=== PATIENT | female | born 1960 | race Caucasian/White ===

== ENCOUNTER → 2020-08-01 10:38 | Outpatient (CLI) | payer OTHER, SELFPAY ==
--- NOTE | ~2020-08-01 | MM_ITS ---
EXAMINATION: MM screening [facility] BI w renetta HISTORY: Screening mammogram TECHNIQUE: Craniocaudal and mediolateral oblique 3-D tomosynthesis images were obtained and synthetic 2-D images were generated. CAD analysis was submitted and interpreted. COMPARISON: 07/02/2019, 06/29/2018, 06/27/2017, 08/05/2016 BREAST PARENCHYMAL COMPOSITION: There are scattered areas of fibroglandular density. FINDINGS: Scattered benign-appearing calcifications are present. There is no evidence of suspicious m ass, calcification, or architectural distortion to suggest malignancy in either breast. There has bee n no suspicious interval change. IMPRESSION: 1. No mammographic evidence of malignancy. 2. Recommend routine screening mammography in one year. BI-RADS Category 2: Benign finding(s). Reviewed, dictated and finalized at location A. SHING TUNNEL OPERATOR
== END ==
PROVIDERS: PCP Internal Medicine; Visit Provider Nurse Practitioner
DX: Z12.31 Encounter for screening mammogram for malignant neoplasm of breast (principal)
CPT/HCPCS: 77063; 77067

== ENCOUNTER 2021-03-15 01:08 | Day surgery (SDC) | payer OTHER, SELFPAY ==
[2021-03-01 10:53] VITALS: BMI 27.6
[2021-03-15 06:08] VITALS: BP 176/81; PULSE 58; RESP 18; TEMP 36.6; O2SAT 98; BMI 27.3
[2021-03-15] MEDS: LACTATED RINGERS 1,000 ML 30 ML IV CONT (06:38)
--- NOTE | 2021-03-15 06:59 | WPDANESEPPF ---
Anes - Initial Pre Proc Eval Procedure: Operation Date: 03/15/21 07:30 Proposed Procedures p Screening Colonoscopy - Deo Turpin MD Date/Time: 03/15/21 06:59 Surgeon: Deo Turpin MD Pre Op Diagnosis: family hx of colon ca, neoplasm screening Patient Data Age: 61 Gender: F Height: 1.63 m Weight: 72.2 kg Last Vital Signs Temp 36.6 C 03/15/21 06:08 Pulse 58 L 03/15/21 06:08 Resp 18 03/15/21 06:08 BP 176/81 H 03/15/21 06:08 Pulse Ox 98 03/15/21 06:08 Allergies Allergy/AdvReac Type Severity Reaction Status Date / Time Penicillins Allergy Unknown Other Verified 03/15/21 06:17 Home Medications Medication Instructions Recorded Confirmed Type ascorbic acid (vitamin C) 250 mg PO DAILY 03/01/21 03/15/21 History cholecalciferol (vitamin D3) 125 mcg PO 4XW 03/01/21 03/15/21 History metoprolol succinate 100 mg PO DAILY 03/01/21 03/15/21 History multivit with min-folic acid 1 tablet PO DAILY 03/01/21 03/15/21 History [Adult One Daily Multivitamin] triamterene-hydrochlorothiazid 1 tablet PO QAM 03/01/21 03/15/21 History Patient hx anesthesia problems: none Family hx anesthesia problems: none PMFSH Past Medical History Medical History Bunion HTN (hypertension) Overweight Smoker Surgical History Surgical History (Updated 03/15/21 @ 07:00 by Srinivasa Colby MD) H/O arthroscopic knee surgery Social History Social History Smoking packs per day: 1 Smoking cigarettes per day: 20.0 Years smoked: 40 Smoking pack-years: 40.00 Smoking status: Current every day smoker Tobacco type: cigarettes Alcohol intake: current Drinks per week: 10 Living arrangements: with family Spiritual care concerns: No Anes - Eval Final PreProcedure Day of Procedure 03/15/21 06:59 Patient weight: overweight Heart: regular rate and rhythm Lungs: clear to auscultation Airway: Mallampati scale class II Neurological: alert and oriented Last oral intake: >/= 8 hours ASA classification: II Emergent: no Anesthetic plan: proceed Anesthesia type and monitoring: general GIVS and standard monitoring Informed Consent: The patient's anesthetic plan and its attendant risks and benefits were discussed with the patient/family/POA. Questions were solicited and answers provided to the satisfaction of the patient/family/POA.
--- NOTE | 2021-03-15 07:12 | WPDGICN ---
Assessment and Plan Assessment and plan (1) Family history of malignant neoplasm of colon in first degree relative diagnosed when younger than 60 years of age: Code(s): Z80.0 - Family history of malignant neoplasm of digestive organs Status: Acute Assessment and Plan: Patient has a family history of colon cancer in her sister. For this reason surveillance colonoscopy is recommended now on a 5 year intervals in the future. High-fiber diet is advised for her frequent stools suggesting irritable bowel syndrome. If this fails to improve her bowel habits, then Viberzi has been recommended as well. GI Consult Note Consult date/time: 03/15/21 07:12 HPI: Shelia Kang is a 61 year old female Presents for screening colonoscopy. Patient's current weight appetite bowel movement reported to be normal. She denies abdominal pain. She has had no bleeding. Family history is significant that her sister had colon cancer. Patient does report that she has frequent stools. Sometimes up to 6 a day. She has had no bleeding. She has no abdominal pain. Her family physician as recently suggested a trial of Viberzi , but has not yet been started. Review of Systems Review of Systems: All systems reviewed & are unremarkable except as noted in HPI and below PMFSH Past Medical History Medical History Bunion HTN (hypertension) Overweight Smoker Surgical History Surgical History (Updated 03/15/21 @ 07:00 by Srinivasa Colby MD) H/O arthroscopic knee surgery Social History Social History Smoking packs per day: 1 Smoking cigarettes per day: 20.0 Years smoked: 40 Smoking pack-years: 40.00 Smoking status: Current every day smoker Tobacco type: cigarettes Alcohol intake: current Drinks per week: 10 Living arrangements: with family Spiritual care concerns: No Meds Home Medications and Allergies Home Medications Medication Instructions Recorded Confirmed Type ascorbic acid (vitamin C) 250 mg PO DAILY 03/01/21 03/15/21 History cholecalciferol (vitamin D3) 125 mcg PO 4XW 03/01/21 03/15/21 History metoprolol succinate 100 mg PO DAILY 03/01/21 03/15/21 History multivit with min-folic acid 1 tablet PO DAILY 03/01/21 03/15/21 History [Adult One Daily Multivitamin] triamterene-hydrochlorothiazid 1 tablet PO QAM 03/01/21 03/15/21 History Allergies Allergy/AdvReac Type Severity Reaction Status Date / Time Penicillins Allergy Unknown Other Verified 03/15/21 06:17 Vital Signs Vital Signs - 24 hr 03/15/21 06:08 Temperature 97.8 F Pulse Rate 58 L Respiratory Rate 18 Blood Pressure 176/81 H Pulse Oximetry 98 Exam Narrative: Physical exam reveals patient be alert. Vital signs stable. HEENT exam is unremarkable. Patient is anicteric. Lungs are clear to auscultation and percussion. Heart is without murmur or extra sounds. Abdominal exam bowel sounds are present soft nontender with no organomegaly. Digital external rectal exam is normal.
[2021-03-15] MEDS: SIMETHICONE ORAL SUSPENSION 20 MG/0.3 ML 30 ML BOTTLE 0.6 ML IRRIGATION (07:40)
[2021-03-15 07:46] VITALS: BP 124/84; PULSE 55; RESP 18; O2SAT 97
[2021-03-15 07:56] VITALS: BP 126/68; PULSE 55; RESP 18; O2SAT 100
[2021-03-15 08:06] VITALS: BP 173/90; PULSE 46; RESP 18; O2SAT 100
== END 2021-03-15 08:15 | disposition home or self-care (01) ==
PROVIDERS: PCP Internal Medicine; Visit Provider Internal Medicine Gastroenterology
PROC: 0DJD8ZZ Inspection of Lower Intestinal Tract, Via Natural or Artificial Opening Endoscopic (ICD-10-PCS; CPT 45378; principal; 2021-03-15 07:30)
DX: Z12.11 Encounter for screening for malignant neoplasm of colon (principal); D12.5 Benign neoplasm of sigmoid colon; K64.8 Other hemorrhoids; Z80.0 Family history of malignant neoplasm of digestive organs; I10 Essential (primary) hypertension; F17.210 Nicotine dependence, cigarettes, uncomplicated
CPT/HCPCS: 45385; 88305; J7120

== ENCOUNTER → 2021-08-03 10:46 | Outpatient (CLI) | payer OTHER, SELFPAY ==
--- NOTE | ~2021-08-03 | MM_ITS ---
EXAMINATION: MM screening [facility] BI w renetta HISTORY: Screening TECHNIQUE: Craniocaudal and mediolateral oblique 3-D tomosynthesis images were obtained and synthetic 2-D images were generated. CAD analysis was submitted and interpreted. COMPARISON: Comparison to multiple prior studies sequentially, with oldest reviewed study dated 06/20. BREAST PARENCHYMAL COMPOSITION: There are scattered areas of fibroglandular density. FINDINGS: There is no evidence of suspicious mass, calcification, or architectural distortion to sugg est malignancy in either breast. There has been no suspicious interval change. IMPRESSION: 1. No mammographic evidence of malignancy. 2. Recommend routine screening mammography in one year. BI-RADS Category 1: Negative Reviewed, dictated and finalized at location A. LINE CATALYST OPERATOR
== END ==
PROVIDERS: PCP Internal Medicine; Visit Provider Nurse Practitioner
DX: Z12.31 Encounter for screening mammogram for malignant neoplasm of breast (principal)
CPT/HCPCS: 77063; 77067

== ENCOUNTER → 2021-09-18 08:08 | Outpatient (CLI) | payer BC, SELFPAY ==
--- NOTE | ~2021-09-18 | CT_ITS ---
EXAMINATION: CT lung screening DATE: 09/18/2021 08:24 INDICATION: Z87.891 - Personal history of nicotine dependence TECHNIQUE: Computed tomography (CT) of the chest was performed without intravenous contrast. Addition al 3D reconstructions utilizing coronal maximum intensity projection (MIP) were performed. Automated exposure control and iterative reconstruction technique were employed. The dose-length product was 69 .98 mGy-cm. COMPARISON: None FINDINGS: Mild right apical pleural-parenchymal scarring. Calcified right upper lobe nodule which along with ca lcified right hilar and mediastinal lymph nodes and several scattered small hepatic and splenic calci fic lesions, all consistent with old granulomatous disease. There are few bilateral scattered <3 mm n odules. Minimal linear atelectasis/scarring at the inferomedial aspect of the lingula and right middl e lobe. No pleural effusion. Heart size is normal. Small amount of atherosclerotic coronary artery ca lcific location. No pericardial effusion. Thoracic aorta is normal in caliber with small amount scatt ered atherosclerotic calcific location. No pathologically enlarged thoracic lymphadenopathy. Mild cor tical atrophy at the visualized upper pole of the left kidney. Approximately 35 degrees thoracic dext roscoliosis with mild spondylosis. IMPRESSION: 1. Lung-RADS category 2: Benign appearance or behavior. Continue annual screening with noncontrast lo w-dose chest CT in 12 months. Reviewed, dictated and finalized at location A. INE ADJUSTER LEADER IMPRESSION: 1. Lung-RADS category 2: Benign appearance or behavior. Continue annual screeni ng with noncontrast low-dose chest CT in 12 months.
== END ==
PROVIDERS: PCP Family Medicine; Visit Provider Physician Assistant
DX: Z12.2 Encounter for screening for malignant neoplasm of respiratory organs (principal); Z87.891 Personal history of nicotine dependence
CPT/HCPCS: 71271

== ENCOUNTER → 2022-09-04 13:23 | Outpatient (CLI) | payer BC, SELFPAY ==
--- NOTE | ~2022-09-04 | MM_ITS ---
EXAMINATION: MM screening [facility] BI w renetta HISTORY: Screening mammogram TECHNIQUE: Craniocaudal and mediolateral oblique 3-D tomosynthesis images were obtained and synthetic 2-D images were generated. CAD analysis was submitted and interpreted. COMPARISON: 08/03/2021, 08/01/2020, 07/02/2019 BREAST PARENCHYMAL COMPOSITION: There are scattered areas of fibroglandular density. FINDINGS: No suspicious mass, calcification, or architectural distortion are identified in either codie ast to suggest malignancy. There has been no suspicious interval change. IMPRESSION: 1. No mammographic evidence of malignancy. 2. Recommend routine screening mammography in one year. BI-RADS Category 1: Negative Reviewed, dictated and finalized at location A. CASKET ASSEMBLER
== END ==
PROVIDERS: PCP Family Medicine; Visit Provider Nurse Practitioner
DX: Z12.31 Encounter for screening mammogram for malignant neoplasm of breast (principal)
CPT/HCPCS: 77063; 77067

== ENCOUNTER → 2023-10-07 15:44 | Outpatient (CLI) | payer BC, SELFPAY ==
--- NOTE | ~2023-10-07 | MM_ITS ---
EXAMINATION: MM screening [facility] BI w renetta HISTORY: Screening TECHNIQUE: Craniocaudal and mediolateral oblique 3-D tomosynthesis images were obtained and synthetic 2-D images were generated. CAD analysis was submitted and interpreted. COMPARISON: Comparison to multiple prior studies sequentially, with oldest reviewed study dated 06/18. BREAST PARENCHYMAL COMPOSITION: Not dense: There are scattered areas of fibroglandular density. FINDINGS: There is no evidence of suspicious mass, calcification, or architectural distortion to sugg est malignancy in either breast. There has been no suspicious interval change. IMPRESSION: 1. No mammographic evidence of malignancy. 2. Recommend routine screening mammography in one year. BI-RADS Category 1: Negative Reviewed, dictated and finalized at location A. ROUTE SUPERVISOR
== END ==
PROVIDERS: PCP Nurse Practitioner; Visit Provider Nurse Practitioner
DX: Z12.31 Encounter for screening mammogram for malignant neoplasm of breast (principal)
CPT/HCPCS: 77063; 77067

== ENCOUNTER 2023-11-25 10:54 | Outpatient (CLI) | payer BC, SELFPAY ==
--- NOTE | ~2023-11-25 | DEXA_ITS ---
Bone Density Report Name: RICKIE VELASQUEZ Age: 63 Sex: Female Ethnicity: White Date of : 1960 Indication: postmenopausal; screening for osteoporosis; Referring Provider: Antoine, Aleshia Study: Bone densitometry was performed. Exam Date: November 25, 2023 Accession number: [id number] Bone Density: Region BMD T-score Z-score Classification AP Spine (L1-L4) 0.946 -0.9 0.7 Normal Femoral Neck (Left) 0.761 -0.8 0.6 Normal Total Hip (Left) 0.872 -0.6 0.5 Normal Femoral Neck (Right) 0.793 -0.5 0.9 Normal Total Hip (Right) 0.869 -0.6 0.5 Normal Total Hip Mean 0.871 -0.6 0.5 Normal World Health Organization criteria for BMD impression classify patients as: Normal (T-score at or above -1.0), Osteopenia (T-score between -1.0 and -2.5), or Osteoporosis (T-score at or below -2.5). 10-year Fracture Risk: FRAX not reported because: All T-scores for Spine Total, Hip Total, Femoral Neck at or above -1.0 Previous Exams: Region Exam Age BMD T-score BMD Change BMD Change Date g/cm2 vs Baseline vs Previous AP Spine(L1-L4) 11/25/2023 63 0.946 -0.9 -0.005 -0.004 07/02/2019 59 0.950 -0.9 -0.001 0.018 08/05/2016 56 0.931 -1.1 -0.020 -0.028* 06/12/2013 53 0.959 -0.8 0.008 0.008 06/12/2013 53 0.951 -0.9 Total Hip(Left) 11/25/2023 63 0.872 -0.6 0.051* 0.016 07/02/2019 59 0.856 -0.7 0.035* -0.004 08/05/2016 56 0.861 -0.7 0.039* 0.039* 06/12/2013 53 0.821 -1.0 Total Hip(Right) 11/25/2023 63 0.869 -0.6 0.023 0.035* 07/02/2019 59 0.834 -0.9 -0.012 -0.030* 08/05/2016 56 0.864 -0.6 0.018 0.018 06/12/2013 53 0.846 -0.8 *Denotes significance at 95% confidence level, LSC for AP Spine = 0.022 g/cm2, LSC for Total Hip = 0.027 g/cm2 Clinical Information Provided by Patient: Has used the following medications: Vitamin D, MTV Patient maximum height was 64.0 Menopause Age: 42 No regular weight bearing exercise Drinks caffeinated beverages Onset of menses at age 13 Number of children 0 Impression: The patient has normal bone mass. No significant bone loss was observed. Discussion: BONE DENSITY IS ABOVE THE MINIMUM DESIRABLE LEVEL AT ALL SKELETAL SITES TESTED. This patient?s bone mineral density is above the minimum desira
== END 2023-11-25 10:55 ==
LOC: MICIMG 10:55
PROVIDERS: PCP Family Medicine; Visit Provider Nurse Practitioner
DX: Z13.820 Encounter for screening for osteoporosis (principal); Z78.0 Asymptomatic menopausal state
CPT/HCPCS: 77080

== ENCOUNTER 2023-12-09 13:37 | Outpatient (CLI) | payer BC, SELFPAY ==
--- NOTE | ~2023-12-09 | CT_ITS ---
CT Scan of the Chest without Contrast: Clinical Indication: Lung cancer showing, nicotine dependence Technique: Contiguous sections were acquired throughout the chest without intravenous contrast. Dose reduction technique was used on this scan by utilizing automated exposure control and iterative recon struction technique. The dose-length product (DLP) was 90.58 mGy-cm. COMPARISON: 09/18/2021 Findings: There is no evidence of any significant mediastinal, hilar or axillary lymphadenopathy. Calcified med iastinal and right hilar lymph nodes are present. Coronary artery calcium cages are present. The medi astinal soft tissues otherwise appear normal. There is no evidence of pleural or pericardial effusion. The lungs are clear, aside from calcified right upper lobe granuloma. Images through the upper abdomen reveal no abnormalities. Impression: Lung RADS 1: Negative. 12 month follow-up screening CT advised. Reviewed, dictated and finalized at [facility]. Impression: Lung RADS 1: Negative. 12 month follow-up screening CT advised.
== END 2023-12-09 13:38 ==
LOC: MICIMG 13:38
PROVIDERS: PCP Family Medicine; Visit Provider Family Medicine
DX: Z12.2 Encounter for screening for malignant neoplasm of respiratory organs (principal); Z87.891 Personal history of nicotine dependence
CPT/HCPCS: 71271

== ENCOUNTER 2024-10-11 10:04 | Outpatient (CLI) | payer BC, SELFPAY ==
--- NOTE | ~2024-10-11 | MM_ITS ---
EXAMINATION: MM screening [facility] BI w renetta HISTORY: Screening mammogram TECHNIQUE: Craniocaudal and mediolateral oblique 3-D tomosynthesis images were obtained and synthetic 2-D images were generated. CAD analysis was submitted and interpreted. COMPARISON: 10/07/2023, 09/04/2022, 08/03/2021 BREAST PARENCHYMAL COMPOSITION:Not Dense. There are scattered areas of fibroglandular density. FINDINGS: No suspicious mass, calcification, or architectural distortion are identified in either codie ast to suggest malignancy. There has been no suspicious interval change. IMPRESSION: No mammographic evidence of malignancy. Recommend routine screening mammography in one year. BI-RADS Category 1: Negative Reviewed, dictated and finalized at location . ING CONSULTANT
== END 2024-10-11 10:05 | disposition home or self-care (01) ==
LOC: MICIMG 10:04
PROVIDERS: PCP Family Medicine; Visit Provider Nurse Practitioner
DX: Z12.31 Encounter for screening mammogram for malignant neoplasm of breast (principal)
CPT/HCPCS: 77063; 77067

== ENCOUNTER 2025-05-13 12:37 | Emergency (ER) | payer BC, SELFPAY ==
--- OUTSIDE RECORDS SUMMARY | 2025-05-13 12:40 | XMS_ITS | Clinical Summary ---
Author Organization [facility] [address] Address [address] [place] [address] Care Team Providers Care Founder President And Ceo Name Role Phone Isidro Ag MD Primary Care Provider + Allergies Active Allergy Reactions Criticality Noted Date Comments Venom-Honey Bee Swelling Medium 03/04/2019 Penicillin G Rash Medium 11/12/2011 Rash Penicillins Rash Medium 03/04/2019 Medications ascorbic acid (vitamin C) 1,000 mg tablet Take 1,000 mg by mouth daily Active cholecalciferol (VITAMIN D-3) 1,000 unit tablet Take 1,000 Units by mouth daily Active multivitamin-iro n-folic acid 18-400 mg-mcg tabletIndication s:Vitamin Deficiency Prevention Take 1 tablet by mouth daily Active eluxadoline (Viberzi) 100 mg tabletIndication s:Diarrhea Predominant Irritable Bowel Syndrome Take 1 tablet (100 mg total) by mouth 2 (two) times a day 60 tablet 5 03/01/2021 Active metoprolol XL (TOPROL-XL) 100 mg 24 hr tablet Take 1 tablet by mouth once daily 90 tablet 01/29/2022 Active triamterene-hydr oCHLOROthiazide 37.5-25 mg per tablet TAKE 1 TABLET BY MOUTH DAILY 30 tablet 03/18/2022 Active Active Problems Problem Noted Date Diagnosed Date Irritable bowel syndrome with diarrhea Assessment & Plan (03/01/2021 8:28 AM CDT): Will try Viberizi 100 mg twice a day Numbness and tingling in left arm 03/01/2021 Assessment & Plan (03/01/2021 8:38 AM CDT): Discussed using NCT She states it is not bad enough to do a nerve conduction study. Ringworm 03/01/2021 Assessment & Plan (03/01/2021 8:40 AM CDT): She will try tinactin twice a day. Pure hypercholesterolemia 03/02/2020 Assessment & Plan (02/27/2021 10:07 AM CDT): Was elevated at last check. Hypertension, essential 03/04/2019 Assessment & Plan (03/01/2021 8:20 AM CDT): Elevated today, but she did not take her meds this am. Continue metoprolol and triamterene hydrochlorothiazide Assessment & Plan (03/02/2020 8:12 AM CDT): Slightly elevated today, but she did not take her medication this am. Continue metoprolol and triamterene hydrochlorothiazide Assessment & Plan (03/04/2019 2:13 PM CDT): Stable on metoprolol and triamterene hydrochlorothiazide Cigarette nicotine dependence without complicati on 03/04/2019 Assessment & Plan (02/27/2021 10:06 AM CDT): Counseled on smoking cessation for over 3 minutes Assessment & Plan (03/01/2020 7:08 AM CDT): Counseled on smoking cessation for over 3 minutes Assessment & Plan (03/04/2019 2:11 PM CDT): Patient's interest in quitting smoking. Information given. Family history of colon cancer 03/04/2019 Overview (03/04/2019): Due for colonoscopy in 2020 Assessment & Plan (03/01/2021 8:23 AM CDT): Has colonoscopy scheduled with Dr. Papi chi. Assessment & Plan (03/01/2020 7:08 AM CDT): Due for colonoscopy in 2019 Assessment & Plan (03/04/2019 2:31 PM CDT): Due for colonoscopy in 2020 BMI 28.0-28.9,adult 03/04/2019 Assessment & Plan (03/01/2020 7:09 AM CDT): BMI Follow-up includes: exercise counseling. Assessment & Plan (03/04/2019 2:34 PM CDT): BMI Follow-up includes: exercise counseling. Vitamin D deficiency 03/04/2019 Assessment & Plan (02/27/2021 10:07 AM CDT): Stable on vitamin D Assessment & Plan (03/01/2020 7:08 AM CDT): Stable on vitamin-D Immunizations Immunization Administration Dates Next Due Influenza, Quadrivalent, Spl it, Preservative Free, Intramuscular 06/02/2020,05/18/2019,05/18/2018 Pfizer SARS-CoV-2 Monovalent Vaccination (12+ Yrs) PURPLE 12/12/2020,11/21/2020 Surgical History Surgery Date Site/Laterality Comments BUNIONECTOMY 08/18/1995 - 08/17/1996 Bilateral KNEE ARTHROSCOPY Left 2012 COLONOSCOPY 08/18/2015 - 08/17/2016 Dr. Bolden - fabiola per patient Medical History Medical History Date Comments Hypertension Family History Medical History Relation Name Comments Lung cancer Father No Known Problems Mother Relation Name Status Comments Father Mother Social History Tobacco Use Types Packs/Day Years Used Date Smoking Tobacco: Every Day Cigarettes 0.5 30 Smokeless Tobacco: Never Tobacco Cessation:Ready to Q uit: Yes; Counseling Given: Yes Alcohol Use Standard Drinks/Week Comments Yes 10 (1 standard drink = 0.6 oz pu re alcohol) PHQ-2 Answer Date Recorded PHQ-2 Total Score (If total score is 3 or more points, staff should administer the PHQ-9) 0 03/01/2021 Personal Safety Answer Date Recorded Getting School Help Needed Not on file 10/12 Comments Unknown Sex and Gender Information Value Date Recorded Sex Assigned at Not on file 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 Gender Identity Not on file Sexual Orientation Not on file Obstetrics History Last Filed Vital Signs Vital Sign Reading Time Taken Comments Blood Pressure 160/90 03/01/2021 8:08 AM CDT Pulse 61 03/01/2021 8:08 AM CDT Temperature 36.7 C (98 F) 03/01/2021 8:08 AM CDT Respiratory Rate 16 03/01/2021 8:08 AM CDT Oxygen Saturation 98% 03/01/2021 8:08 AM CDT Inhaled Oxygen Concentration - - Weight 73.5 kg (162 lb 1.6 oz) 03/01/2021 8:08 A M CDT Height 161.9 cm (5' 3.75) 03/01/2021 8:08 AM CD T Body Mass Index 28.04 03/01/2021 8:08 AM CDT Plan of Treatment Health Maintenance Due Date Last Done Comments Cervical Cancer Screening 1960 Hepatitis C Screening 1960 DTaP/Tdap/Td Vaccine (1 - Tdap) 02/05/1972 Hepatitis B Screening 1979 Regular Well Visit/Exam 18-64 1979 Pneumococcal vaccine <65 (1 of 2 - PCV) 02/05/1980 Depression Screening 03/01/2022 03/01/2021, 03/02/20 Breast Cancer Screening-Mammogram 08/03/2022 021, 08/01/2020 Covid-19 Vaccine (3 - 2024-2 6 season) 2025 12/12/2020, 11/21/2020 Influenza Vaccine (#1) 2025 0, 05/18/2019, 05/18/2018 Colon Cancer Screening-Colonoscopy 03/15/20262020, 05/06/2016 Colon Cancer Screening-CT Colonography Discontinued 03/15/2021, 05/06/2016 Colon Cancer Screening-DNA Stool Discontinued 03/15/20 21, 05/06/2016 Colon Cancer Screening-FIT Discontinued 03/15/2021, Colon Cancer Screening-Sigmoidoscopy Discontinued 02/16, 05/06/2016 Zoster Vaccine Completed 12/20/2021, 10/10/2021 Procedures Procedure Name Priority Date/Time Associated Diagnosis Comments MAMMOGRAPHY Schedule Routine, Re ad Routine (OP Routine) 08/03/2021 COLONOSCOPY Routine 03/15/2021 from Last 3 Months or Most Recently Relevant to Health Maintenance Results * MAMMOGRAPHY (08/03/2021) Anatomical Region Laterality Modality Breast Mammography Historical Provider IMG MAMMO PROCEDURES Emperatriz l Result * Colonoscopy (03/15/2021) Anatomical Region Laterality Modality Other us Historical Provider ENDOSCOPY PROCEDURES Emperatriz l Result from Last 3 Months or Most Recently Relevant to Health Maintenance Insurance [facility] Care Teams Founder President And Ceo Relationship Specialty Start Date End Date Isidro Ag MD [address] [place] [id number] PCP - General Internal Medicine 03/04/19
--- OUTSIDE RECORDS SUMMARY | 2025-05-13 12:40 | XMS_ITS | Clinical Summary ---
Author Organization [facility] Address [address] [place] [address] Care Team Providers Care Cloud Developer Name Role Phone Unavailable Primary Care Provider Unavailabl e Source Comments [facility],non-owned Affiliates and Associated Physician Practices is amultiple site organization consisting of ambulatory clinics and hospital sitesin [place], [place], [place] and [place]. This disclosure is being madepursuant to the Care Everywhere program and may not contain all information available regarding this patient. Last updated 18.[facility] NeedFeed Allergies No known active allergies Immunizations Immunization Administration Dates Next Due INFLUENZA VACCINE, QUADR. 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 Gender Identity Not on file Sexual Orientation Not on file Plan of Treatment Health Maintenance Due Date Last Done Comments COLOGUARD (AGES 45-75) - COL ON CA SCREENING 1960 COLON MONITORING 1961 COLONOSCOPY - COLON CA SCREENING 1961 CT COLONOGRAPHY - COLON CA SCREENING 1960 Colorectal Cancer Screening 1960 FIT - COLON CA SCREENING 1961 FLEX SIG - COLON CA SCREENING 1960 LIPID TESTING 1960 MAMMOGRAM 1960 HIV SCREENING 02/05/1976 HEPATITIS C SCREENING 01/31/1979 DTAP/TDAP/TD VACCINES (1 - Tdap) 02/05/1980 PNEUMOCOCCAL VACCINE 50+ (1 of 1 - PCV) 2011 ZOSTER VACCINE (1 of 2) 2011 DEPRESSION SCREENING 08/18/2024 COVID-19 VACCINE (1 - 2023-2 5 season) 2025 INFLUENZA VACCINE (#1) 2025 05/18/2019 Respiratory Syncytial Virus (RSV) Vaccine Pt: or over 60 yrs (1 - 1-dose 75+ series) 02/05/2036 HEPATITIS B VACCINE Aged Out No longe r eligible based on patient's age to complete this topic HIB VACCINE Aged Out No longer eligi ble based on patient's age to complete this topic HPV VACCINE Aged Out No longer eligi ble based on patient's age to complete this topic MENINGOCOCCAL (Group B) VACC INE SHARED DECISION-MAKING Aged Out No longer eligibl e based on patient's age to complete this topic MENINGOCOCCAL GROUPS A/C/Y/W VACCINE Aged Out No longer eligible b ased on patient's age to complete this topic Insurance AETNA AETNA
[2025-05-13 12:45] VITALS: BP 128/71; PULSE 65; RESP 16; TEMP 36.9; O2SAT 100
--- NOTE | 2025-05-13 12:59 | ED_ITS ---
HPI - Dizziness General Chief Complaint: Dizziness Stated Complaint: Dizziness, L side tingling Time Seen by Provider: 05/13/25 12:43 Source: patient and RN notes reviewed Mode of arrival: ambulatory Limitations: no limitations History of Present Illness HPI Narrative: Patient is a 65-year-old female with history of HLD and hypertension, presenting today with sudden onset dizziness and left-sided numbness to the arm, leg, trunk, and face that started at 1220 while cleaning her house. States symptoms started to resolve upon arrival to [facility] appoximately 20 mins later. States the numbness is now tingling. Dizziness has improved, but is worsening again upon exam. Denies headache, vision changes, shortness of breath, chest pain, or any additional symptoms. Takes amlodipine, metoprolol, triamterene-hydrochlorothiazide for her hypertension. Former smoker. Related Data Home Medications ?Medication ?Instructions ?Recorded ?Confirmed ?Last Taken ?Type ascorbic acid (vitamin C) 250 mg 250 mg PO DAILY 03/0111/29/24 03/14/21 History tablet cholecalciferol (vitamin D3) 125 125 mcg PO 4XW 11/29/24 03/14/21 History mcg (5,000 unit) tablet multivitamin with minerals-folic 1 tablet PO DAILY 11/29/24 03/14/21 History acid 0.4 mg tablet (Adult One Daily Multivitamin) Allergies Allergy/AdvReac Type Severity Reaction Status Date / Time Penicillins Allergy Unknown Other Verified 05/13/25 12:49 [facility] Past Medical History Medical History HLD (hyperlipidemia) Asymptomatic microscopic hematuria chronic HTN (hypertension) Smoker Overweight Surgical History Surgical History H/O arthroscopic knee surgery L menisectomy Bunion Family History Family History Father Lung cancer Mother Hypertension Sibling Cerebrovascular accident Carcinoma of colon Social History Social History Smoking packs per day: 1 Smoking cigarettes per day: 20.0 Years smoked: 40 Smoking pack-years: 40.00 Smoking status: Former smoker Tobacco type: cigarettes Second hand tobacco smoke exposure: No Smoking end date: 06/17/23 Alcohol intake: current Drinks per week: 6 Substance use: never Substance use type: does not use Living arrangements: with family Occupation/Education: unemployed Gender identity (if verbalized by the patient): Female Sexual Orientation (if Verbalized by the Patient): Straight or Heterosexual Spiritual care concerns: No Comments At time of signature, I have reviewed and agree with nursing past medical, surgical, social and family history unless otherwise noted. Please see nursing chart for further information. There is no relevant family history pertinent to the presenting complaint Exam Narrative: GENERAL: Well-appearing, well-nourished, and in no acute distress. HEAD: Normocephalic, atraumatic. EYES: EOMI. PERRL. No redness or drainage. Conjunctivae normal. ENT: Mucous membranes pink and moist. Nares clear. No rhinorrhea. NECK: Normal AROM. Supple. No lymphadenopathy. CHEST: No respiratory distress. Clear to auscultation. HEART: Regular rate and rhythm. No murmur appreciated. EXTREMITIES: Normal range of motion. No edema. SKIN: Warm, dry, no rash. Capillary refill normal. Normal skin turgor. NEURO: No focal deficits. Alert and oriented x3. Gait steady. Hand commercial lines insurance agent equal and strong. 5/5 strength in BLE. Finger-nose normal. PSYCH: Normal affect. No signs of depression or anxiety. Course Course Level of Care: Express Care Visit Vital Signs Vital signs: Vital Signs Temperature 98.5 F 05/13/25 12:45 Pulse Rate 65 05/13/25 12:45 Respiratory Rate 16 05/13/25 12:45 Blood Pressure 128/71 05/13/25 12:45 Pulse Oximetry 100 05/13/25 12:45 Oxygen Delivery Room Air 05/13/25 12:45 Temperature 98.5 F 05/13/25 12:45 Pulse Rate 65 05/13/25 12:45 Respiratory Rate 16 05/13/25 12:45 Blood Pressure 128/71 05/13/25 12:45 Pulse Oximetry 100 05/13/25 12:45 Oxygen Delivery Room Air 05/13/25 12:45 Reviewed Transfer Transfered to: [place] Transportation: Other (private vehicle. Patient refuses EMS transport.) Transfer rationale: Sudden onset dizziness and numbness Accepting physician: Phoenix RANDOLPH - Dizziness MDM Narrative Medical decision making narrative: Patient is a 65-year-old female with history of HLD and hypertension, presents with sudden onset dizziness and left-sided numbness to the arm, leg, trunk, and face that started at 1220 while cleaning her house. States symptoms started to resolve upon arrival to [facility] appoximately 20 mins later. States the numbness is now tingling. Dizziness has improved, but is worsening again upon exam. Patient's exam was without any abnormal findings. VSS. Recommend patient transfer to the ER for further evaluation of her symptoms. Patient agrees with plan. She refuses EMS transport, but will go via private vehicle. Differential Diagnosis Differential diagnosis: Likely benign paroxysmal positional vertigo, orthostatic hypotension, cerebrovascular accident and transient cerebral ischemia Critical Care Time Critical Care Time Critical Care Time: No Discharge Plan Discharge Clinical Impression: Dizziness, Numbness and tingling Patient Disposition: Acute Care Hospital Condition: Serious Patient Language: Syriac Prescriptions: No Action varenicline tartrate [Chantix Starting Month Box] 0.5 mg (11)- 1 mg (42) tablets,dose pack See Rx Instructions PO PER PKG DIR Qty: 53 0RF Rx Instructions: PO PER PKG DIR varenicline tartrate [Chantix Continuing Month Box] 1 mg tablet 1 mg PO BID Qty: 60 4RF ascorbic acid (vitamin C) 250 mg Tablet 250 mg PO DAILY Adult One Daily Multivitamin 0.4 mg Tablet 1 tablet PO DAILY cholecalciferol (vitamin D3) 125 mcg (5,000 unit) Tablet 125 mcg PO 4XW triamterene-hydrochlorothiazid 37.5-25 mg tablet 1 tablet PO QAM Qty: 90 2RF amlodipine 10 mg tablet See Rx Instructions .ROUTE .COMPLEX Qty: 90 2RF Dose Instruction: TAKE 1 TABLET BY MOUTH EVERY DAY Rx Instructions: TAKE 1 TABLET BY MOUTH EVERY DAY metoprolol succinate 100 mg tablet extended release 24 hr 100 mg PO DAILY Qty: 90 3RF Follow-up/Referrals: Pedro Prado MD [Primary Care Provider, Family Practice] Time of Disposition: 12:59 Quality Stroke Scale Stroke Scale 1: Stroke scale date:: 05/13/25 Stroke scale time:: 12:43 1a Level of consciousness: alert-0 1b Level of consciousness questions: answers both correctly-0 1c Level of consciousness commands: obeys both correctly-0 2 Best gaze: normal-0 3 Visual: no visual loss-0 4 Facial palsy: normal-0 5a Motor: left arm: no drift-0 5b Motor: right arm: no drift-0 6a Motor: left leg: no drift-0 6b Motor: right leg: no drift-0 7 Limb ataxia: absent-0 8 Sensory: normal-0 9 Best language: no aphasia-0 10 Dysarthria: normal-0 11 Extinction and inattention: no abnormality-0 Level:: 0
== END 2025-05-13 13:00 | disposition short-term general hospital (02) ==
PROVIDERS: Emergency Provider Nurse Practitioner; PCP Family Medicine
DX: R42 Dizziness and giddiness (principal); R20.0 Anesthesia of skin; R20.2 Paresthesia of skin; E78.5 Hyperlipidemia, unspecified; I10 Essential (primary) hypertension; Z87.891 Personal history of nicotine dependence
CPT/HCPCS: 99213; G0463

== ENCOUNTER 2025-05-13 13:15 | Observation (INO) | payer BC, SELFPAY ==
[2025-05-13] VITALS (12 sets, daily range): BP systolic 126–158; BP diastolic 76–84; PULSE 53–64; RESP 12–19; TEMP 36.1–36.8; O2SAT 96–99; BMI 28.8
--- NOTE | ~2025-05-13 | MR_ITS ---
EXAMINATION: MR brain/brain stem wo/w con DATE: 05/15/2025 09:14 INDICATION: Transient ischemic attack. TECHNIQUE: Magnetic resonance imaging (MRI) of the brain and brainstem was performed without and with 14 mL MultiHance intravenous contrast. COMPARISON: Head CT 05/13/2025 FINDINGS: There are scattered areas of nonspecific increased T2-weighted signal intensity in the cerebral white matter, which is within normal limits for the patient's age. There is no intracranial hemorrhage, acute infarction, or abnormal intracranial mass lesion. The ventricles are normal in size. There is mild mucosal thickening in the paranasal sinuses. There are likely changes of ocular lens replacement surgeries. The mastoid air cells are normal. IMPRESSION: 1. Normal aging brain. Reviewed, dictated and finalized at location E. IMPRESSION: 1. Normal aging brain.
--- NOTE | ~2025-05-13 | XR_ITS ---
EXAMINATION: XR chest 1V, 05/13/2025 14:12 CDT HISTORY: tia vs cva COMPARISON: No comparisons available. Technique: Single view. Findings: The lungs are clear, no effusion. No pneumothorax. Heart is normal size. Mediastinal and hilar contours are within normal limits. Bony thorax no acute abnormality. Impression: No acute cardiopulmonary abnormality. Reviewed, dictated and finalized at location P. Impression: No acute cardiopulmonary abnormality.
--- NOTE | ~2025-05-13 | CT_ITS ---
EXAMINATION: CTA brain carotid, 05/13/2025 14:00 CDT HISTORY: tia vs cva COMPARISON: No comparisons available. TECHNIQUE: CTA scan with 3D Reconstructions of the brain and neck was performed with contrast Isovue 300, 92cc injected IV. One or more of the following dose reduction techniques were used: automated exposure control, adjustment of the mA and/or kV according to patient size, use of iterative reconstruction technique. Unless otherwise stated, incidental findings do not require dedicated follow up imaging FINDINGS: CTA brain: The noncontrast images demonstrate no acute infarct or hemorrhage. The visualized brain parenchyma and optic globes unremarkable. Visualized soft tissues are unremarkable. Basilar artery unremarkable. Right posterior cerebral artery unremarkable. Left posterior cerebral artery unremarkable Right petrous and cavernous ICA segments unremarkable. Right M1, M2 segments and their branches unremarkable. Right A1 and A2 segments unremarkable. Left petrous and cavernous ICA segments unremarkable. Left M1, M2 segments and their branches unremarkable. Left A1 and A2 segments unremarkable. CTA NECK: Soft tissues unremarkable. Parotid and submandibular glands unremarkable. No thickening of the prevertebral space or asymmetry of the airway. No gross thyroid nodules. There are calcified mediastinal lymph nodes noted. The lung apices are unremarkable. No sclerotic or lytic lesions. Severe sinusitis of the right maxillary sinus with underlying polyp formation suspected. The cervical segments of the vertebral arteries appear unremarkable Right CCA unremarkable. Right ICA 50% stenosis from calcified plaque Left CCA unremarkable. Proximal left ICA 5% stenosis from mixed plaque. IMPRESSION: 1. No critical stenosis, aneurysm or occlusion identified Reviewed, dictated and finalized at location P.
--- NOTE | 2025-05-13 13:45 | ECG_ITS ---
Test Date: 2025-05-13 13:54:02 Measurements Intervals [place] Rate: 59 P: 91 AR: 203 QRS: 57 QRSD: 85 T: 30 QT: 419 QTc: 417 Interpretive Statements SINUS BRADYCARDIA POSSIBLE RIGHT VENTRICULAR CONDUCTION DELAY [RSR (QR) IN V1/V2] NONSPECIFIC ST & T-WAVE ABNORMALITY No previous ECG available for comparison Electronically Signed On 05-13-2025 20:04:02 CDT by Terry Peralta M.D.
[2025-05-13 14:11] LABS: Hematocrit 45.2 % (37.0-47.0); Hemoglobin 15.8 g/dL (12.0-15.0); Immature Granulocyte Percent A 0.2 % (0-0.5); Lymphocytes Absolute Auto 1.59 K/mm3 (0.9-3.2); Mean Corpuscular HGB Conc 35.0 g/dl (32-36); Mean Corpuscular Hemoglobin 32.4 pg (26-34); Mean Corpuscular Volume 92.8 fl (80-100); Nucleated Red Blood Cells Absolute Auto 0.000 K/mm3 (0.0-0.012); Nucleated Red Blood Cells Perc 0.0 % (0.0-0.2); Platelet Count Result 193 k/mm3 (150-375); Red Blood Count 4.87 M/mm3 (4.2-5.4); White Blood Count 8.2 K/mm3 (4.5-10.0)
[2025-05-13 14:22] LABS: INR 0.9; Prothrombin Time 12.5 Seconds (11.1-14.7)
[2025-05-13 14:23] LABS: Partial Thromboplastin Time 26.4 Seconds (22.3-36.8)
[2025-05-13 14:24] LABS: Alanine Aminotransferase 34 U/L (6-35); Albumin Level 4.7 g/dL (3.5-5.1); Alkaline Phosphatase 81 U/L (38-126); Anion Gap 10 mmol/L (4-12); Aspartate Amino Transferase 40 U/L (14-36); Bilirubin,Total 0.6 mg/dL (0.2-1.3); Blood Urea Nitrogen 11 mg/dL (7-17); Calcium 9.9 mg/dL (8.4-10.2); Carbon Dioxide 26 mmol/L (22-30); Chloride 100 mmol/L (98-107); Estimated CRCL calculation 75 ml/min; Estimated Glomerular Filt Rate > 60; Glucose 111 mg/dL (65-110); Potassium 3.5 mmol/L (3.4-5.0); Sodium 136 mmol/L (137-145); Total Protein 8.0 g/dL (6.3-8.2)
[2025-05-13 14:44] LABS: Troponin I < 0.012 ng/mL (0.000-0.034)
--- OUTSIDE RECORDS SUMMARY | 2025-05-13 14:53 | XMS_ITS | Clinical Summary ---
Author Organization [facility] Address [address] [place] [address] Care Team Providers Care Mortgage Assistant Name Role Phone Unavailable Primary Care Provider Unavailabl e Source Comments [facility],non-owned Affiliates and Associated Physician Practices is amultiple site organization consisting of ambulatory clinics and hospital sitesin [place], [place], [place] and [place]. This disclosure is being madepursuant to the Care Everywhere program and may not contain all information available regarding this patient. Last updated 18.[facility] [employer]! Allergies No known active allergies Immunizations Immunization Administration Dates Next Due INFLUENZA VACCINE, QUADR. 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
--- OUTSIDE RECORDS SUMMARY | 2025-05-13 14:53 | XMS_ITS | Clinical Summary ---
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 Care Teams Lawyer Real Estate Relationship Specialty Start Date End Date Isidro Ag MD [address] [place] [id number] PCP - General Internal Medicine 03/04/19
--- NOTE | 2025-05-13 15:56 | ED.GENADULT ---
HPI - General Adult General Chief complaint: Dizziness Stated complaint: left sided numbness and dizziness, sx now resolved Time Seen by Provider: 05/13/25 14:48 History of Present Illness HPI narrative: Patient is a 65-year-old female who presents ER with stroke symptoms. Around 12:00 p.m. patient developed sudden onset dizziness with left-sided numbness of the arm/face/leg. It lasted for 30 minutes. It is since resolved. NIH stroke scale in the ER is 0. Has history of hypertension. She is on no antiplatelets. Denies spinning vertigo. No ringing in the ears. No URI symptoms. Related Data Home Medications ?Medication ?Instructions ?Recorded ?Confirmed ?Last Taken ?Type ascorbic acid (vitamin C) 250 mg 250 mg PO DAILY 03/01/21 05/13/25 05/13/25 History tablet cholecalciferol (vitamin D3) 125 125 mcg PO 4XW 03/01/21 05/13/25 05/11/25 History mcg (5,000 unit) tablet multivitamin with minerals-folic 1 tablet PO DAILY 03/01/21 05/13/25 05/13/25 History acid 0.4 mg tablet (Adult One Daily Multivitamin) metoprolol succinate 100 mg 100 mg PO HS 05/13/25 05/13/25 05/12/25 History tablet,extended release 24 hr Allergies Allergy/AdvReac Type Severity Reaction Status Date / Time Penicillins Allergy Unknown Other Verified 05/13/25 18:04 Review of Systems Review of Systems: All systems reviewed & are unremarkable except as noted in HPI and below Constitutional: Constitutional: Reports no additional constitutional complaints Cardiovascular: Cardiovascular: Reports no additional cardiovascular complaints Respiratory: Respiratory: Reports no additional respiratory complaints Gastrointestinal: Gastrointestinal: Reports no additional gastrointestinal complaints Neurologic: Reports system reviewed and no additional complaints, except as documented [facility] Past Medical History Medical History HLD (hyperlipidemia) Asymptomatic microscopic hematuria chronic HTN (hypertension) Smoker Overweight Surgical History Surgical History H/O arthroscopic knee surgery L menisectomy Bunion Family History Family History Father Lung cancer Mother Hypertension Sibling Cerebrovascular accident Carcinoma of colon Social History Social History Smoking packs per day: 1 Smoking cigarettes per day: 20.0 Years smoked: 40 Smoking pack-years: 40.00 Smoking status: Never smoker Tobacco type: cigarettes Second hand tobacco smoke exposure: No Smoking end date: 06/17/23 Alcohol intake: current Drinks per week: 6 Substance use: never Substance use type: does not use Living arrangements: with family Occupation/Education: unemployed Gender identity (if verbalized by the patient): Female Sexual Orientation (if Verbalized by the Patient): Straight or Heterosexual Spiritual care concerns: No Exam Narrative: GENERAL: Well-appearing, well-nourished, and in no acute distress. HEAD: Normocephalic, atraumatic. EYES: PERRL and EOMI. ENT: Mucous membranes moist. CHEST: Clear to auscultation. No respiratory distress. HEART: Regular rate and rhythm. Normal peripheral pulses. ABDOMEN: Soft, nontender, nondistended. EXTREMITIES: Normal range of motion. No edema. SKIN: Warm, dry, no rash. NEURO: No focal deficits. Alert and oriented x3. Denies stroke scale 0. PSYCH: Normal mood and affect. Course Course Emergency Course: Discussed diagnosis and treatment plan. Admit to hospitalist service. Likely neurology consultation tomorrow. Will obtain MRI. Will place on tele. Vital Signs Vital signs: Vital Signs Temperature 98.2 F 05/13/25 13:42 Pulse Rate 58 L 05/13/25 13:42 Respiratory Rate 16 05/13/25 13:42 Blood Pressure 126/76 05/13/25 13:42 Pulse Oximetry 99 05/13/25 13:42 Temperature 98.2 F 05/13/25 13:42 Pulse Rate 62 05/13/25 21:25 Respiratory Rate 18 05/13/25 16:15 Blood Pressure 158/84 H 05/13/25 15:16 Pulse Oximetry 97 05/13/25 16:15 Medical Decision Making Vital Signs Vital Signs: Vital Signs Temperature 98.2 F 05/13/25 13:42 Pulse Rate 58 L 05/13/25 13:42 Respiratory Rate 16 05/13/25 13:42 Blood Pressure 126/76 05/13/25 13:42 Pulse Oximetry 99 05/13/25 13:42 Temperature 98.2 F 05/13/25 13:42 Pulse Rate 62 05/13/25 21:25 Respiratory Rate 18 05/13/25 16:15 Blood Pressure 158/84 H 05/13/25 15:16 Pulse Oximetry 97 05/13/25 16:15 Lab Data 05/13/25 14:04 05/13/25 14:04 Labs: Lab Results 05/13/25 05/13/25 Range/Units 13:54 14:04 WBC 8.2 (4.5-10.0) K/mm3 RBC 4.87 (4.2-5.4) M/mm3 Hgb 15.8 H (12.0-15.0) g/dL Hct 45.2 (37.0-47.0) % MCV 92.8 (80-100) fl MCH 32.4 (26-34) pg MCHC 35.0 (32-36) g/dl RDW 12.1 (11.5-14.5) % Plt Count 193 (150-375) k/mm3 MPV 10.7 H (7.4-10.4) fl Immature Gran % (Auto) 0.2 (0-0.5) % Neut % (Auto) 71.9 (45.5-73.1) % Lymph % (Auto) 19.4 (18.3-44.2) % [place] % (Auto) 6.3 (2.6-8.5) % Eos % (Auto) 1.7 (0-4.4) % Baso % (Auto) 0.5 (0.2-1.2) % Lymph # (Auto) 1.59 (0.9-3.2) K/mm3 [place] # (Auto) 0.5 (0.1-0.6) K/mm3 Eos # (Auto) 0.1 (0-0.3) K/mm3 Baso # (Auto) 0.0 (0.0-0.1) K/mm3 Abs Immat Gran (auto) 0.02 (0.00-0.031) K/mm3 Absolute Neuts (auto) 5.9 (1.3-6.7) K/mm3 Absolute Nucleated RBC 0.000 (0.0-0.012) K/mm3 Nucleated RBC % 0.0 (0.0-0.2) % PT 12.5 (11.1-14.7) Seconds INR 0.9 APTT 26.4 (22.3-36.8) Seconds Sodium 136 L (137-145) mmol/L Potassium 3.5 (3.4-5.0) mmol/L Chloride 100 (98-107) mmol/L Carbon Dioxide 26 (22-30) mmol/L Anion Gap 10 (4-12) mmol/L BUN 11 (7-17) mg/dL Creatinine 0.65 L (0.7-1.0) mg/dL Estim Creat Clear Calc 75 ml/min Estimated GFR > 60 (59 - ) Glucose 111 H (65-110) mg/dL POC Capillary Glucose 119 H (65-105) mg/dl Calcium 9.9 (8.4-10.2) mg/dL Total Bilirubin 0.6 (0.2-1.3) mg/dL AST 40 H (14-36) U/L ALT 34 (6-35) U/L Alkaline Phosphatase 81 (38-126) U/L Troponin I < 0.012 (0.000-0.034) ng/mL Total Protein 8.0 (6.3-8.2) g/dL Albumin 4.7 (3.5-5.1) g/dL Imaging Data Radiologist's impression: ITS Impressions Head/Neck CTA 05/13/25 14:17 IMPRESSION: 1. No critical stenosis, aneurysm or occlusion identified Chest X-Ray 05/13/25 14:22 Impression: No acute cardiopulmonary abnormality. ECG Data EKG #1: ECG completion date: 05/13/25 ECG completion time: 13:54 EKG Interpretation: bradycardia (59), sinus rhythm, normal QRS, normal QT and NL axis Discharge Plan Discharge Clinical Impression: TIA (transient ischemic attack) Patient Disposition: Still a Patient Condition: Stable Quality Stroke Scale Stroke Scale 1: 1a Level of consciousness: alert-0 1b Level of consciousness questions: answers both correctly-0 1c Level of consciousness commands: obeys both correctly-0 2 Best gaze: normal-0 3 Visual: no visual loss-0 4 Facial palsy: normal-0 5a Motor: left arm: no drift-0 5b Motor: right arm: no drift-0 6a Motor: left leg: no drift-0 6b Motor: right leg: no drift-0 7 Limb ataxia: absent-0 8 Sensory: normal-0 9 Best language: no aphasia-0 10 Dysarthria: normal-0 11 Extinction and inattention: no abnormality-0 Level:: 0
[2025-05-13] MEDS: ASPIRIN 81 MG CHEWABLE TABLET 324 MG PO (16:18)
--- NOTE | 2025-05-13 17:06 | P.HP_ITS ---
H&P: HPI History of Present Illness Date/Time: 05/13/25 17:06 Chief Complaint: Dizziness and left-sided numbness Narrative: 65-year-old patient with past medical history of hyperlipidemia, hypertension and smoker presents the hospital with dizziness and left-sided numbness. Patient states she 1st noticed it around noon and presented to urgent care. Urgent care center to the emergency room. Patient states that symptoms lasted around 30 minutes. She states that she is completely symptom free at this point time. Patient denies fevers chills nausea or vomiting or shortness of breath. Patient states that she had her lipid panel done about 6 months ago and was trying lifestyle changes at that time. Lab work in the ED shows hemoglobin of 15.8 sodium of 136, creatinine of 0.65, AST of 40, baseline troponin negative, CTA of the head shows no acute findings, Right CCA unremarkable, Right ICA 50% stenosis from calcified plaque and Left CCA unremarkable, Proximal left ICA 5% stenosis from mixed plaque. Chest x-ray shows no acute findings. EKG shows sinus Alek rate of 59. Patient was given aspirin in the emergency room, neurology consult for tomorrow and MRI. Review of Systems Review of Systems: 12 systems were reviewed and are negativ e except for as per HPI. REPLACED BY [facility] Past Medical History Medical History HLD (hyperlipidemia) Asymptomatic microscopic hematuria chronic HTN (hypertension) Smoker Overweight Surgical History Surgical History H/O arthroscopic knee surgery L menisectomy Bunion Family History Family History Father Lung cancer Mother Hypertension Sibling Cerebrovascular accident Carcinoma of colon Social History Social History Smoking packs per day: 1 Smoking cigarettes per day: 20.0 Years smoked: 40 Smoking pack-years: 40.00 Smoking status: Never smoker Tobacco type: cigarettes Second hand tobacco smoke exposure: No Smoking end date: 06/17/23 Alcohol intake: current Drinks per week: 6 Substance use: never Substance use type: does not use Living arrangements: with family Occupation/Education: unemployed Gender identity (if verbalized by the patient): Female Sexual Orientation (if Verbalized by the Patient): Straight or Heterosexual Spiritual care concerns: No Meds Home Medications and Allergies Home Medications ?Medication ?Instructions ?Recorded ?Confirmed ?Type ascorbic acid (vitamin C) 250 mg 250 mg PO DAILY 03/0105/13/25 History tablet cholecalciferol (vitamin D3) 125 125 mcg PO 4XW 05/13/25 History mcg (5,000 unit) tablet multivitamin with minerals-folic 1 tablet PO DAILY 05/13/25 History acid 0.4 mg tablet (Adult One Daily Multivitamin) amlodipine 10 mg tablet See Rx Instructions .Route 0 04/14/25 05/13/25 Rx .COMPLEX #90 tabs triamterene 37.5 1 tablet PO QAM #90 tabs 05/13/25 Rx mg-hydrochlorothiazide 25 mg tablet metoprolol succinate 100 mg 100 mg PO HS 05/13/25 0902/09 History tablet,extended release 24 hr Allergies Allergy/AdvReac Type Severity Reaction Status Date / Time Penicillins Allergy Unknown Other Verified 05/13/25 18:04 Vital Signs Vital Signs - 24 hr 05/13/25 13:42 05/13/25 15:07 05/13/25 15:08 Temperature 98.2 F Pulse Rate 58 L 53 L 57 L Respiratory Rate 16 19 15 Blood Pressure 126/76 126/81 Pulse Oximetry 99 99 05/13/25 15:15 05/13/25 15:16 05/13/25 15:30 Temperature Pulse Rate 58 L 58 L 58 L Respiratory Rate 16 18 17 Blood Pressure 158/84 H Pulse Oximetry 96 98 99 05/13/25 15:45 05/13/25 16:00 05/13/25 16:15 Temperature Pulse Rate 53 L 64 55 L Respiratory Rate 12 16 18 Blood Pressure Pulse Oximetry 98 97 97 Exam Narrative: General: well appearing, appears stated age. HEENT: normocephalic, atraumatic. Mucous membranes moist. EOMI, PERRLA, bilateral sclera anicteric, no conjunctival injection. Neck supple without JVD, lymphadenopathy, or bruit. Respiratory: clear to ascultation bilaterally. No rales/rhonic/wheezes. Cardiovascular: Regular rate and rhythm, normal S1-S2 upon ascultation. No murmurs, rubs, or clicks. PMI is nondisplaced, capillary refill less than 3 second. Abdomen: Soft, round, no pulsatile masses, nondistended and nontender. No r ebound, no guarding. No CVA tenderness, no hepatosplenomegaly. Bowel sounds present to all four quadrants. No high pitch or tinkling sounds, resonant to percussion. Extremities: No cyanosis, clubbing, or edema present. Pulses are palpable 2/2. Active ROM to all four extremities. Neuro: Alert and orientated x 4. PERRLA. Cranial nerves 2-12 intact without focal deficit. Skin: Warm, dry, and intact, without rash, erythema, or lesion. Psych: pleasant, cooperative, normal speech, normal affect, no hallucinations, no dysarthia H&P: Results Labs Labs: Short CBC 05/13/25 Range/Units 14:04 WBC 8.2 (4.5-10.0) K/mm3 Hgb 15.8 H (12.0-15.0) g/dL Hct 45.2 (37.0-47.0) % Plt Count 193 (150-375) k/mm3 BMP 05/13/25 14:04 Sodium 136 L Potassium 3.5 Chloride 100 Carbon Dioxide 26 BUN 11 Creatinine 0.65 L Glucose 111 H Calcium 9.9 Cardiac Enzymes 05/13/25 Range/Units 14:04 Troponin I < 0.012 (0.000-0.034) ng/mL Liver Function 05/13/25 Range/Units 14:04 Total Bilirubin 0.6 (0.2-1.3) mg/dL AST 40 H (14-36) U/L ALT 34 (6-35) U/L Alkaline Phosphatase 81 (38-126) U/L Albumin 4.7 (3.5-5.1) g/dL Assessment and Plan Assessment and plan (1) TIA (transient ischemic attack): Code(s): G45.9 - Transient cerebral ischemic attack, unspecified Status: Acute Assessment and Plan: Likely TIA with dizziness and left-sided weakness Urology consult for tomorrow NIH in emergency room was 0 Aspirin given CTA with no acute findings MRI pending Telemetry monitoring Frequent neuro checks Lipid panel (2) HTN (hypertension): Code(s): I10 - Essential (primary) hypertension Status: Acute Assessment and Plan: Continue antihypertensive medications (3) HLD (hyperlipidemia): Code(s): E78.5 - Hyperlipidemia, unspecified Status: Acute Assessment and Plan: Has been trying lifestyle modifications for the last 6 months Lipid panel pending Not on medications at this time Quality VTE Prophylaxis VTE prophylaxis: mechanical ordered and pharmacologic ordered Stroke Scale Stroke scale date:: 05/13/25 Stroke scale time:: 23:13 1a Level of conciousness: alert-0 1b Level of consciousness: answers both correctly-0 2 Best gaze: normal-0 3 Visual: no visual loss-0 4 Facial palsy: normal-0 5a Motor: left arm: no drift-0 5b Motor: right arm: no drift-0 6b Motor: right leg: no drift-0 7 Limb ataxia: absent-0 8 Sensory: normal-0 9 Best language: no aphasia-0 10 Dysarthria: normal-0 11 Extinction and inattention: no abnormality-0 Pharmacological Therapy Was IV thrombolytic therapy given?: No Hospitalist MIPS Advance Care Plan I have confirmed that the patient's Advanced Care Plan is present, code status is documented, or surrogate decision maker is listed in patient medical record.: Yes Medication Reconciliation I have utilized all available resources to obtain, update and review the patients current medications (includes all prescriptions, OTC, herbals, cannabis, and nutritional supplements).: Yes
--- NOTE | 2025-05-13 17:21 | ADMGEN ---
This patient, Shelia Kang, was admitted to [facility] Surg Room 327-01. Patient/family oriented to hospital policies and general routines including ID bracelet, bed and alarms, visiting hours, pain management, procedures, bathroom and other care routines, personal items, smoking policy, room service/diet, and visiting hours. Information on how to activate the Rapid Response Team has been discussed. Patient/Family are encouraged to report perceived risks to care and to ask questions if they do not understand what they are told or what they should do.
--- NOTE | 2025-05-13 17:24 | PC.NURSE ---
Report was not given about this patient by ED. Nurse Daniela asked if I had any questions, when this nurse asked what the patient was here for Daniela stated this is not her patient and that I can call back after I look the patient up and they will are sending the patient up and I can call later with any questions.
[2025-05-13] MEDS: METOPROLOL SUCCINATE EXT REL 100 MG TABCR PO (21:25)
[2025-05-14] VITALS (9 sets, daily range): BP systolic 108–125; BP diastolic 56–63; PULSE 40–59; RESP 16–18; TEMP 35.9–36.9; O2SAT 97–99
--- NOTE | 2025-05-14 | ECHO_ITS ---
Patient Info Name: Shelia Kang Age: 65 years : 1960 Gender: Female Ht: 64 in Wt: 167 lbs BSA: 1.87 m2 HR: 52 bpm BP: 110 / 61 mmHg Technical Quality: Good Exam Date: 05/14/2025 8:31 AM Patient Status: O Admit Date: 05/13/2025 Exam Type: CA echo doppler w bubble study Complete two-dimensional, color flow and Doppler transthoracic echocardiogram is performed with agitated saline. Staff Referring Physician: Reji Mckinney MD [employer] Operator: Jazmine Cameron Attending Provider: Adal King Contrast/Agitated Saline Contrast/Ag. Saline: Agitated Saline Amount: 20.00 ml Summary 1. Left ventricular systolic function is normal, estimated at 60-65. 2. Intact interatrial septum visualized by agitated saline imaging. 3. There is mild aortic valve sclerosis. 4. There is trace mitral valve regurgitation. Left Ventricle Left ventricular chamber dimension is normal. Left ventricular systolic function is normal, estimated at 60-65. There is no increased left ventricular wall thickness. Left ventricular septal wall motion is normal. The left ventricular diastolic function is normal. Right Ventricle Right ventricular chamber dimension is normal. Right ventricular systolic function is normal. Left Atria Left atrial chamber dimension is normal. Right Atria Right atrial chamber dimension is normal. Atrial Septum Intact interatrial septum visualized by agitated saline imaging. Aortic Valve The aortic valve is trileaflet. There is mild aortic valve sclerosis. There is no aortic valve stenosis. There is no aortic valve regurgitation. Pulmonic Valve The pulmonic valve is normal. There is no pulmonic valve stenosis. There is no pulmonic regurgitation. Mitral Valve The mitral valve has normal leaflets. There is no mitral valve stenosis. There is trace mitral valve regurgitation. Tricuspid Valve The tricuspid valve leaflets are normal. There is no significant tricuspid valve stenosis. There is no tricuspid valve regurgitation. Pericardium/Pleural The pericardium appears normal. There is small pericardial effusion. Inferior Vena Cava Normal inferior vena cava with >50% collapse upon inspiration consistent with normal right atrial pressure, 5 mmHg. Aorta The aortic root size at the sinus of Valsalva is normal. The prox ascending aorta size is normal. Left Ventricular Outflow Tract Name Value Normal LVOT 2D LVOT Diameter 1.6 cm LVOT Doppler LVOT Peak Velocity 154 cm/s LVOT Peak Gradient 9 mmHg LVOT Mean Gradient 5 mmHg LVOT VTI 36 cm LVOT VTI/AV VTI Ratio 0.6 LVOT Stroke Volume 72 ml LVOT CO 3.4 l/min LVOT CI 1.8 l/min/m2 Pulmonic Valve Name Value Normal RVOT Doppler RVOT Peak Velocity 77 cm/s RVOT Peak Gradient 2 mmHg PV Doppler PV Peak Velocity 117 cm/s PV Peak Gradient 5 mmHg Mitral Valve Name Value Normal MV Diastolic Function MV E Peak Velocity 107 cm/s MV A Peak Velocity 62 cm/s MV E/A 1.7 MV Decel Time (PW) 228 ms MV Annular TDI MV E/e' (Septal) 12.5 MV E/e' (Lateral) 9.4 MV E/e' (Average) 10.9 Tricuspid Valve Name Value Normal Estimated PAP/RSVP RA Pressure 5 mmHg <=5 Aortic Valve Name Value Normal AV Doppler AV Peak Velocity 258 cm/s AV Peak Gradient 27 mmHg AV Mean Gradient 13 mmHg AV VTI 55 cm AV Area (Cont Eq VTI) 1.3 cm2 >=3.0 AV Area (Cont Eq Long) 1.2 cm2 AV DI (Long) 0.60 AV Regurgitation 2D LVOT Area 2.0 cm2 Ventricles Name Value Normal LV Dimensions 2D/MM IVS Diastolic Thickness (2D) 0.9 cm 0.6-1.0 LVID Diastole (2D) 4.2 cm 3.8-5.2 LVIW Diastolic Thickness (2D) 1.0 cm 0.6-0.9 LVID Systole (2D) 2.6 cm 2.2-3.5 LVOT Diameter 1.6 cm LV Mass (2D Cubed) 126.75 g 67.00-162.00 LV Mass Index (2D Cubed) 68 g/m2 43-95 Relative Wall Thickness (2D) 0.46 <=0.42 LV Fractional Shortening/Ejection Fraction 2D/MM LV Fractional Shortening (2D) 38 % 27-45 LV EF (2D Teichholz) 69 % LV Diastolic Volume (4C MOD) 79 ml LV EF (4C MOD) 67 % LV Diastolic Volume (2C MOD) 78 ml LV EF (2C MOD) 70 % LV Diastolic Volume (BP MOD) 82 ml 46-106 LV Diastolic Volume Index (BP MOD) 44 ml/m2 29-61 LV Systolic Volume (BP MOD) 26 ml 14-42 LV Systolic Volume Index (BP MOD) 14 ml/m2 8-24 LV EF (BP MOD) 68 % 54-74 LV Diastolic Length (4C) 7.2 cm LV Systolic Length (4C) 5.7 cm LV Stroke Volume (4C MOD) 52 ml Atria Name Value Normal LA Dimensions LA Volume (4C A-L) 28 ml LA Volume (BP A-L) 28 ml RA Dimensions RA Systolic Major Kinsman Length (4C) 4.8 cm 2.2-2.8 RA Area (4C) 12.2 cm2 <=18.0 Report Signatures
[2025-05-14 06:52] LABS: Hematocrit 43.4 % (37.0-47.0); Hemoglobin 14.6 g/dL (12.0-15.0); Immature Granulocyte Percent A 0.5 % (0-0.5); Lymphocytes Absolute Auto 1.57 K/mm3 (0.9-3.2); Mean Corpuscular HGB Conc 33.6 g/dl (32-36); Mean Corpuscular Hemoglobin 32.4 pg (26-34); Mean Corpuscular Volume 96.4 fl (80-100); Nucleated Red Blood Cells Absolute Auto 0.000 K/mm3 (0.0-0.012); Nucleated Red Blood Cells Perc 0.0 % (0.0-0.2); Platelet Count Result 160 k/mm3 (150-375); Red Blood Count 4.50 M/mm3 (4.2-5.4); White Blood Count 6.6 K/mm3 (4.5-10.0)
[2025-05-14 07:16] LABS: Anion Gap 6 mmol/L (4-12); Blood Urea Nitrogen 7 mg/dL (7-17); Calcium 8.9 mg/dL (8.4-10.2); Carbon Dioxide 27 mmol/L (22-30); Chloride 102 mmol/L (98-107); Cholesterol 222 mg/dL (0-200); Estimated CRCL calculation 76 ml/min; Estimated Glomerular Filt Rate > 60; Glucose 100 mg/dL (65-110); HDL Direct 40 mg/dL; Potassium 3.0 mmol/L (3.4-5.0); Sodium 135 mmol/L (137-145); Triglycerides 217 mg/dL (<150)
[2025-05-14] MEDS: ASPIRIN 81 MG CHEWABLE TABLET PO (08:58)
[2025-05-14] MEDS: ENOXAPARIN 40 MG/0.4 ML SYRINGE SUB-Q (08:58)
--- NOTE | 2025-05-14 14:06 | P.CONNEU_ITS ---
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 You know history of cardiac arrhythmias. She used to smoke but he no longer smoking. History of hypertension and hyperlipidemia. LDL is high at 143 in the goal should be to keep under 65. I will suggest and Crestor 20 mg a day. For now we can keep her aspirin 81 mg a day and also add Plavix 75 mg a 3 weeks and after that she can stay on aspirin 81 mg and Crestor or rosuvastatin 20 mg a day. She can follow up with family physician and have a lipid profile done in 3 months time. I have advised her regarding the different ways a stroke at present and if she has any further symptoms he must come to the emergency room right away. Risk factor management is important close follow-up the diet and hypertension is recommended. A follow-up carotid Doppler study should be considered after 1 year in view of the narrowing of right internal carotid artery 50%. She will follow with family physician and see me in my office on as-needed basis. Consult date: 05/14/25 HPI: Shelia Kang is a 65 year old female Who presented to the hospital with history of sudden onset of lightheaded feeling and numbness on the left half of the body which lasted for approximately 30 minutes or so and after that she has returned back to baseline. The At the time of admission CT scan of the brain and CT angiogram head and neck were performed. CT scan of brain did not show any significant abnormality. CT angiogram shows a 50% narrowing the right internal carotid artery. LDL is high at 143. Echocardiogram did not show any significant abnormality. Patient is used to smoke but is no longer smoking. No headache. Currently she is asymptomatic. MRI of the brain has been ordered. Her brother had a stroke and grandmother also had stroke and she from. Review of Systems 2 Review of Systems: All systems reviewed & are unremarkable except as noted in HPI and below [facility] Past Medical History Medical History HLD (hyperlipidemia) Asymptomatic microscopic hematuria chronic HTN (hypertension) Smoker Overweight Surgical History Surgical History H/O arthroscopic knee surgery L menisectomy Bunion Family History Family History Father Lung cancer Mother Hypertension Sibling Cerebrovascular accident Carcinoma of colon Social History Social History Smoking packs per day: 1 Smoking cigarettes per day: 20.0 Years smoked: 40 Smoking pack-years: 40.00 Smoking status: Never smoker Tobacco type: cigarettes Second hand tobacco smoke exposure: No Smoking end date: 06/17/23 Alcohol intake: current Drinks per week: 6 Substance use: never Substance use type: does not use Living arrangements: with family Occupation/Education: unemployed Gender identity (if verbalized by the patient): Female Sexual Orientation (if Verbalized by the Patient): Straight or Heterosexual Spiritual care concerns: No Meds Home Medications and Allergies Home Medications ?Medication ?Instructions ?Recorded ?Confirmed ?Type ascorbic acid (vitamin C) 250 mg 250 mg PO DAILY 03/0105/13/25 History tablet cholecalciferol (vitamin D3) 125 125 mcg PO 4XW 05/13/25 History mcg (5,000 unit) tablet multivitamin with minerals-folic 1 tablet PO DAILY 05/13/25 History acid 0.4 mg tablet (Adult One Daily Multivitamin) amlodipine 10 mg tablet See Rx Instructions .Route 0 04/14/25 05/13/25 Rx .COMPLEX #90 tabs triamterene 37.5 1 tablet PO QAM #90 tabs 05/13/25 Rx mg-hydrochlorothiazide 25 mg tablet metoprolol succinate 100 mg 100 mg PO HS 05/13/2504/19 History tablet,extended release 24 hr Allergies Allergy/AdvReac Type Severity Reaction Status Date / Time Penicillins Allergy Unknown Other Verified 05/13/25 18:04 Vital Signs Vital Signs - 24 hr 05/13/25 15:07 05/13/25 15:08 05/13/25 15:15 Temperature Pulse Rate 53 L 57 L 58 L Respiratory Rate 19 15 16 Blood Pressure 126/81 Pulse Oximetry 99 96 Oxygen Delivery 05/13/25 15:16 05/13/25 15:30 05/13/25 15:45 Temperature Pulse Rate 58 L 58 L 53 L Respiratory Rate 18 17 12 Blood Pressure 158/84 H Pulse Oximetry 98 99 98 Oxygen Delivery 05/13/25 16:00 05/13/25 16:15 05/13/25 20:00 Temperature Pulse Rate 64 55 L Respiratory Rate 16 18 Blood Pressure Pulse Oximetry 97 97 Oxygen Delivery Room Air 05/13/25 20:00 05/13/25 21:25 05/13/25 22:49 Temperature 96.9 F L Pulse Rate 60 62 56 L Respiratory Rate 17 Blood Pressure 126/79 Pulse Oximetry 96 Oxygen Delivery 05/14/25 00:00 05/14/25 04:00 05/14/25 04:59 Temperature 96.8 F L Pulse Rate 45 L 59 L 40 L Respiratory Rate 16 Blood Pressure 110/61 Pulse Oximetry 98 Oxygen Delivery Exam 2 Const: General: cooperative, healthy appearing and comfortable HENMT: Head: atraumatic Mouth: Yes oropharynx normal Other: Mallampati score 2/4 Eyes: Alignment and Position: alignment normal and position normal EOM: E OMs intact bilaterally Neck: Neck: normal visual inspection and supple Resp: Effort & Inspection: normal respiratory effort Cardio: Heart sounds: S1 normal heart sound present and S2 normal heart sound present Skin: General skin exam: normal color Neuro: Cranial nerves: Yes CN's II-XII intact bilaterally, Yes facial symmetry and Yes Midline tongue present Cognition (Neuro): normal cognition Speech: normal speech Sensory Exam: normal sensation Coordination: [id number] test normal and Normal rapid alternating movements of the distal upper extremity present (Neuro) Extrem: General: normal to inspection Psych: Appearance: well kempt Mental Status: mental status grossly normal Speech and movement: Normal speech and movement present Affect: normal affect Thought process: Normal thought process present Thought content: Y es Normal thought content present Insight: Good insight present (Psych) J udgement: Good judgement present (Psych) Results Labs 05/14/25 06:02 05/14/25 06:02 Labs: Short CBC 05/13/25 05/14/25 Range/Units 14:04 06:02 WBC 8.2 6.6 (4.5-10.0) K/mm3 Hgb 15.8 H 14.6 (12.0-15.0) g/dL Hct 45.2 43.4 (37.0-47.0) % Plt Count 193 160 (150-375) k/mm3 BMP 05/13/25 05/14/25 14:04 06:02 Sodium 136 L 135 L Potassium 3.5 3.0 L Chloride 100 102 Carbon Dioxide 26 27 BUN 11 7 Creatinine 0.65 L 0.64 L Glucose 111 H 100 Calcium 9.9 8.9 Cardiac Enzymes 05/13/25 Range/Units 14:04 Troponin I < 0.012 (0.000-0.034) ng/mL Liver Function 05/13/25 Range/Units 14:04 Total Bilirubin 0.6 (0.2-1.3) mg/dL AST 40 H (14-36) U/L ALT 34 (6-35) U/L Alkaline Phosphatase 81 (38-126) U/L Albumin 4.7 (3.5-5.1) g/dL
--- NOTE | 2025-05-14 15:03 | P.PNIM_ITS ---
Progress Note: A&P Assessment and Plan (1) TIA (transient ischemic attack): Code(s): G45.9 - Transient cerebral ischemic attack, unspecified Status: Acute Assessment and Plan: Likely TIA with dizziness and left-sided weakness Urology consult for tomorrow NIH in emergency room was 0 Aspirin given CTA with no acute findings MRI pending Telemetry monitoring Frequent neuro checks Lipid panel neurology is consulted. statin, plavix,asa started (2) HTN (hypertension): Code(s): I10 - Essential (primary) hypertension Status: Acute Assessment and Plan: Continue antihypertensive medications hols meds as bp on a lower side and hr in 40's (3) HLD (hyperlipidemia): Code(s): E78.5 - Hyperlipidemia, unspecified Status: Acute Assessment and Plan: Has been trying lifestyle modifications for the last 6 months Lipid panel pending Not on medications at this time statin started Time Spent With Patient Time with patient: Greater than 35 minutes Subjective Date/time seen: 05/14/25 15:03 Interval history: 65-year-old patient with past medical history of hyperlipidemia, hypertension and smoker presents the hospital with dizziness and left-sided numbness. Patient states she 1st noticed it around noon and presented to urgent care. Urgent care center to the emergency room. Patient states that symptoms lasted around 30 minutes. She states that she is completely symptom free at this point time. Patient denies fevers chills nausea or vomiting or shortness of breath. Patient states that she had her lipid panel done about 6 months ago and was trying lifestyle changes at that time. Lab work in the ED shows hemoglobin of 15.8 sodium of 136, creatinine of 0.65, AST of 40, baseline troponin negative, CTA of the head shows no acute findings, Right CCA unremarkable, Right ICA 50% stenosis from calcified plaque and Left CCA unremarkable, Proximal left ICA 5% stenosis from mixed plaque. Chest x-ray shows no acute findings. EKG shows sinus Alek rate of 59. Patient was given aspirin in the emergency room, neurology consult for tomorrow and MRI. pt is seen and examined. She is very pleasant, denies any pain. denies dizziness. reports that at some point her metoprolol was increased due to high bp and never re adjusted. neurology is following, she is to have mri today. no n/v/d. Review of Systems Review of Systems: 12 systems were reviewed and are negativ e except for as per HPI. Exam Narrative: General: well appearing, appears stated age. HEENT: normocephalic, atraumatic. Mucous membranes moist. EOMI, PERRLA, bilateral sclera anicteric, no conjunctival injection. Neck supple without JVD, lymphadenopathy, or bruit. Respiratory: clear to ascultation bilaterally. No rales/rhonic/wheezes. Cardiovascular: Regular rate and rhythm, normal S1-S2 upon ascultation. No murmurs, rubs, or clicks. PMI is nondisplaced, capillary refill less than 3 second. Abdomen: Soft, round, no pulsatile masses, nondistended and nontender. No rebound, no guarding. No CVA tenderness, no hepatosplenomegaly. Bowel sounds present to all four quadrants. No high pitch or tinkling sounds, resonant to percussion. Extremities: No cyanosis, clubbing, or edema present. Pulses are palpable 2/2. Active ROM to all four extremities. Neuro: Alert and orientated x 4. PERRLA. Cranial nerves 2-12 intact without focal deficit. Skin: Warm, dry, and intact, without rash, erythema, or lesion. Psych: pleasant, cooperative, normal speech, normal affect, no hallucinations, no dysarthia Const: General: comfortable Objective Data Vital Signs Vital Signs: Vital Signs - 24 hr 05/13/25 15:07 05/13/25 15:08 05/13/25 15:15 Temperature Pulse Rate 53 L 57 L 58 L Respiratory Rate 19 15 16 Blood Pressure 126/81 Pulse Oximetry 99 96 Oxygen Delivery 05/13/25 15:16 05/13/25 15:30 05/13/25 15:45 Temperature Pulse Rate 58 L 58 L 53 L Respiratory Rate 18 17 12 Blood Pressure 158/84 H Pulse Oximetry 98 99 98 Oxygen Delivery 05/13/25 16:00 05/13/25 16:15 05/13/25 20:00 Temperature Pulse Rate 64 55 L Respiratory Rate 16 18 Blood Pressure Pulse Oximetry 97 97 Oxygen Delivery Room Air 05/13/25 20:00 05/13/25 21:25 05/13/25 22:49 Temperature 96.9 F L Pulse Rate 60 62 56 L Respiratory Rate 17 Blood Pressure 126/79 Pulse Oximetry 96 Oxygen Delivery 05/14/25 00:00 05/14/25 04:00 05/14/25 04:59 Temperature 96.8 F L Pulse Rate 45 L 59 L 40 L Respiratory Rate 16 Blood Pressure 110/61 Pulse Oximetry 98 Oxygen Delivery 05/14/25 08:00 05/14/25 14:00 Temperature 98.5 F Pulse Rate 59 L Respiratory Rate 18 Blood Pressure 108/56 L Pulse Oximetry 99 Oxygen Delivery Room Air Intake/Output Intake/Output: Intake & Output 05/11/25 05/12/25 05/13/25 05/14/25 23:59 23:59 23:59 23:59 Intake Total 240 720 Balance 240 720 Meds/Results Medications: Active Medications Generic Name Dose Route Start Last Admin Trade Name Freq PRN Reason Stop Dose Admin Acetaminophen 650 mg 05/13/25 16:03 Acetaminophen 325 Mg Tablet PO Q4H PRN Mild Pain (1-3) or Fever Hydrocodone Bitart/Acetaminophen 1 tab 05/13/25 16:03 Hydrocodone/Acetaminophen (*Crx) 5-325 Mg Tablet PO Q4H PRN Pain Rated 4-6 Amlodipine Besylate 10 mg 05/14/25 09:00 05/14/25 08:59 Amlodipine Besylate 10 Mg Tablet BY MOUTH Not Given DAILY KALI Aspirin 81 mg 05/14/25 08:00 05/14/25 08:58 Aspirin 81 Mg Chewable Tablet PO 81 mg DAILY@0800 [facility] Administration Clopidogrel Bisulfate 75 mg 05/15/25 09:00 Clopidogrel Bisulfate 75 Mg Tablet PO QAM [facility] Docusate Sodium 100 mg 05/13/25 17:12 Docusate Sodium 100 Mg Capsule PO BID PRN Constipation Enoxaparin Sodium 40 mg 05/14/25 09:00 05/14/25 08:58 Enoxaparin 40 Mg/0.4 Ml Syringe SUB-Q 40 mg DAILY KALI Administration Metoprolol Succinate 100 mg 05/13/25 21:00 05/13/25 21:25 Metoprolol Succinate Ext Rel 100 Mg Tabcr PO 100 mg HS KALI Administration Ondansetron HCl 4 mg 05/13/25 16:03 Ondansetron Inj 4 Mg/2 Ml Vial IV PUSH Q4H PRN Nausea Perflutren Lipid Microsphere 0 ml 05/13/25 23:56 Perflutren Lipid Microspheres 1.5 Ml Vial Diluted To 10 Ml Total Volume IV PUSH 05/16/25 23:56 ONCE PRN adequate visualization Protocol Rosuvastatin Calcium 20 mg 05/15/25 09:00 Rosuvastatin 20 Mg Tablet PO QAM [facility] Triamterene/Hydrochlorothiazide 1 tab 05/14/25 09:00 05/14/25 08:59 Triamterene 37.5 Mg/Hctz 25 Mg (Maxzide) Tablet PO Not Given QAM [facility] Radiology Results: ITS Impressions Head/Neck CTA 05/13/25 14:17 IMPRESSION: 1. No critical stenosis, aneurysm or occlusion identified Chest X-Ray 05/13/25 14:22 Impression: No acute cardiopulmonary abnormality. Labs Labs: Laboratory Results - last 24 hr 05/14/25 06:02 WBC 6.6 RBC 4.50 Hgb 14.6 Hct 43.4 MCV 96.4 MCH 32.4 MCHC 33.6 RDW 12.2 Plt Count 160 MPV 10.6 H Immature Gran % (Auto) 0.5 Neut % (Auto) 65.2 Lymph % (Auto) 23.6 [place] % (Auto) 7.8 Eos % (Auto) 2.4 Baso % (Auto) 0.5 Lymph # (Auto) 1.57 [place] # (Auto) 0.5 Eos # (Auto) 0.2 Baso # (Auto) 0.0 Abs Immat Gran (auto) 0.03 Absolute Neuts (auto) 4.3 Absolute Nucleated RBC 0.000 Nucleated RBC % 0.0 Sodium 135 L Potassium 3.0 L Chloride 102 Carbon Dioxide 27 Anion Gap 6 BUN 7 Creatinine 0.64 L Estim Creat Clear Calc 76 Estimated GFR > 60 Glucose 100 Calcium 8.9 Triglycerides 217 H Cholesterol 222 H LDL Cholesterol Direct 143 HDL Direct 40 Quality VTE Prophylaxis VTE prophylaxis: mechanical ordered and pharmacologic ordered
[2025-05-15] VITALS: PULSE 62
[2025-05-15 00:47] VITALS: PULSE 57
[2025-05-15 04:00] VITALS: PULSE 50
[2025-05-15 05:40] VITALS: BP 115/54; PULSE 52; RESP 16; TEMP 36.4; O2SAT 99
[2025-05-15 08:00] VITALS: PULSE 58
[2025-05-15] MEDS: ROSUVASTATIN 20 MG TABLET PO (09:52)
[2025-05-15] MEDS: TRIAMTERENE 37.5 MG/HCTZ 25 MG (MAXZIDE) TABLET 1 TAB PO (09:53)
[2025-05-15] MEDS: ENOXAPARIN 40 MG/0.4 ML SYRINGE SUB-Q (09:53)
[2025-05-15] MEDS: ASPIRIN 81 MG CHEWABLE TABLET PO (09:53)
[2025-05-15] MEDS: CLOPIDOGREL BISULFATE 75 MG TABLET PO (09:53)
[2025-05-15 12:00] VITALS: PULSE 62
--- NOTE | 2025-05-15 13:54 | P.DS_ITS ---
DS: Admitting Diagnosis Discharge Date 05/15 Admitting Diagnosis tia DS: Discharge Diagnosis Discharge Diagnosis (1) TIA (transient ischemic attack): Code(s): G45.9 - Transient cerebral ischemic attack, unspecified Status: Acute (2) HTN (hypertension): Code(s): I10 - Essential (primary) hypertension Status: Acute (3) HLD (hyperlipidemia): Code(s): E78.5 - Hyperlipidemia, unspecified Status: Acute DS: Summary Hospital Course Hospital Course: 5-year-old patient with past medical history of hyperlipidemia, hypertension and smoker presents the hospital with dizziness and left-sided numbness. Patient states she 1st noticed it around noon and presented to urgent care. Urgent care center to the emergency room. Patient states that symptoms lasted around 30 minutes. She states that she is completely symptom free at this point time. Patient denies fevers chills nausea or vomiting or shortness of breath. Patient states that she had her lipid panel done about 6 months ago and was trying lifestyle changes at that time. Lab work in the ED shows hemoglobin of 15.8 sodium of 136, creatinine of 0.65, AST of 40, baseline troponin negative, CTA of the head shows no acute findings, Right CCA unremarkable, Right ICA 50% stenosis from calcified plaque and Left CCA unremarkable, Proximal left ICA 5% stenosis from mixed plaque. Chest x-ray shows no acute findings. EKG shows sinus Alek rate of 59. Patient was given aspirin in the emergency room, neurology consult for tomorrow and MRI. 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 You know history of cardiac arrhythmias. She used to smoke but he no longer smoking. History of hypertension and hyperlipidemia. LDL is high at 143 in the goal should be to keep under 65. I will suggest and Crestor 20 mg a day. For now we can keep her aspirin 81 mg a day and also add Plavix 75 mg a 3 weeks and after that she can stay on aspirin 81 mg and Crestor or rosuvastatin 20 mg a day. She can follow up with family physician and have a lipid profile done in 3 months time. I have advised her regarding the different ways a stroke at present and if she has any further symptoms he must come to the emergency room right away. Risk factor management is important close follow-up the diet and hypertension is recommended. A follow-up carotid Doppler study should be considered after 1 year in view of the narrowing of right internal carotid artery 50%. She will follow with family physician and see me in my office on as-needed basis. MRI done: 05/15: IMPRESSION: 1. Normal aging brain. We held all of her BP meds as her bp was around 100/69 with no agents. on 05/13 she received her metoprolol and all day on 05/14 had lower hr-40-50's,so metoprolol was held and hr was a lot better on 05/15. She reports that metoprolol was double while back due to her HTN and never adjusted. Since metoprolol needs ot be weans off slowly, we will decrease dose to 50 mg and will continue it for now she will hold on with HTN meds and monitor her bp closely twice a day and keep journal. She will have to communicate with her established PCP as for further titration BP meds if needed. Time Spent with Patient Time attestation: Total time spent providing and/or coordinating discharge services: Exam Narrative: General: well appearing, appears stated age. HEENT: normocephalic, atraumatic. Mucous membranes moist. EOMI, PERRLA, bilateral sclera anicteric, no conjunctival injection. Neck supple without JVD, lymphadenopathy, or bruit. Respiratory: clear to ascultation bilaterally. No rales/rhonic/wheezes. Cardiovascular: Regular rate and rhythm, normal S1-S2 upon ascultation. No murmurs, rubs, or clicks. PMI is nondisplaced, capillary refill less than 3 second. Abdomen: Soft, round, no pulsatile masses, nondistended and nontender. No r ebound, no guarding. No CVA tenderness, no hepatosplenomegaly. Bowel sounds present to all four quadrants. No high pitch or tinkling sounds, resonant to percussion. Extremities: No cyanosis, clubbing, or edema present. Pulses are palpable 2/2. Active ROM to all four extremities. Neuro: Alert and orientated x 4. PERRLA. Cranial nerves 2-12 intact without focal deficit. Skin: Warm, dry, and intact, without rash, erythema, or lesion. Psych: pleasant, cooperative, normal speech, normal affect, no hallucinations, no dysarthia Const: General: comfortable Discharge Plan Discharge Attending physician on discharge: Anna Maher Consulting providers: Alfredo Montaño Discharging Clinician: Mere Mendez Patient Disposition: Home Activity: may shower Diet: heart healthy Discharge Instructions: Neurology suggested you start Crestor(rosuvastatin-cholesterol medication) 20 mg a day, aspirin 81 mg a day and also add Plavix 75 mg a 3 weeks and after that you can stay on aspirin 81 mg and Crestor 20 mg a day. We will cut metoprolol dose in half- so continue to take 50 mg and hopefully you will be able to titrate it down and stop. Do not take your other BP meds and keep track of your blood pleasures. please communicate any increases in BP with your PCP for further directions. Patient Instructions: Antibiotic Form Patient Language: Palestinian Stand Alone Forms: General Discharge Information Follow-up/Referrals: Pedro Prado MD [Primary Care Provider, Family Practice] - 2 Weeks Alfredo Montaño MD [Physician, Neurology] - 4 Weeks Discharge Medications: New clopidogrel 75 mg Tablet 75 mg PO QAM Qty: 30 0RF rosuvastatin 20 mg Tablet 20 mg PO QAM Qty: 90 0RF aspirin [Children's Aspirin] 81 mg Tablet,Chewable 81 mg PO DAILY@0800 Qty: 3 0RF Continued ascorbic acid (vitamin C) 250 mg Tablet 250 mg PO DAILY multivit with min-folic acid [Adult One Daily Multivitamin] 0.4 mg Tablet 1 tablet PO DAILY cholecalciferol (vitamin D3) 125 mcg (5,000 unit) Tablet 125 mcg PO 4XW Changed metoprolol succinate 100 mg tablet extended release 24 hr 50 mg PO HS Qty: 30 0RF Held triamterene-hydrochlorothiazid 37.5-25 mg tablet 1 tablet PO QAM Qty: 90 2RF Hold Instructions: Resume on 06/16/25. hold until directed otherwise per your PCP amlodipine 10 mg tablet See Rx Instructions .ROUTE .COMPLEX Qty: 90 2RF Hold Instructions: Resume on 06/15/25. hold until directed otherwise per your PCP Dose Instruction: TAKE 1 TABLET BY MOUTH EVERY DAY Rx Instructions: TAKE 1 TABLET BY MOUTH EVERY DAY Date of admission: 05/13/25 16:03 Primary Care Provider: Pedro Prado Admitting Provider: Jayaraj,Adal Attending physician on admission: Adal King Condition: Stable Quality VTE Prophylaxis VTE prophylaxis: mechanical ordered and pharmacologic ordered Hospitalist MIPS Heart Failure (Exclusion) Patient has history of Heart Transplant or Left Ventricular Assistive Device?: No IF YES, STOP HERE Heart Failure (Qualifier) Patient has current or prior documentation of LVEF less than or equal to 40%, or mod/servere depressed LVSF?: No IF NO, STOP HERE
[2025-05-16 10:56] LABS: Estimated CRCL calculation 62 ml/min; Estimated Glomerular Filt Rate > 60
== END 2025-05-15 14:55 | disposition home or self-care (01) ==
LOC: ANHED 14:50 → ANH3MEDSUR 17:40
PROVIDERS: Nurse Practitioner Gerontology; Admitting Provider General Practice; Emergency Provider Emergency Medicine; PCP Family Medicine; Visit Provider General Practice
DX: G45.9 Transient cerebral ischemic attack, unspecified (principal); I10 Essential (primary) hypertension; E78.5 Hyperlipidemia, unspecified; R00.1 Bradycardia, unspecified; Z87.891 Personal history of nicotine dependence; Z82.3 Family history of stroke; Z80.1 Family history of malignant neoplasm of trachea, bronchus and lung; Z80.0 Family history of malignant neoplasm of digestive organs; Z82.49 Family history of ischemic heart disease and other diseases of the circulatory system
CPT/HCPCS: 36415; 70496; 70498; 70553; 71045; 80048; 80053; 80061; 82565; 82948; 84484; 85025; 85610; 85730; 93005; 93306; 96372; 96375; 99285; A9270; A9577; G0378; J1650; Q9967